=== PATIENT | male | born 1955 | race Two or more races ===

== ENCOUNTER 2020-08-05 11:04 | Inpatient (IN) | payer OTHER ==
[~2020-08-05] VITALS: Ht 167.6 cm; Wt 106.1 kg
[2020-08-05] MEDS ORDERED: ASPirin 81 mg TAB PO ONE (11:30)
[2020-08-05 12:12] LABS: Mean Corpuscular Hemoglobin 29.8 pg (28.0-32.0); Mean Corpuscular Hgb Conc. 34.4 g/dL (32.0-36.0); Nucleated Red Blood Cells % 0.2 %; White Blood Cell 3.7 10^3/uL (4.4-10.8)
[2020-08-05 12:14] LABS: Basophils # (auto) 0 10 ^3/uL (0-0.2); Basophils % (auto) 0.8 % (0.0-2.0); Eosinophils # (auto) 0.1 10 ^3/uL (0-0.8); Eosinophils % (auto) 2.7 % (0.0-7.0); Hematocrit 49.9 % (41.0-53.0); Hemoglobin 17.2 g/dL (13.5-17.5); Lymphocytes # (auto) 0.7 10 ^3/uL (0.4-5.4); Lymphocytes % (auto) 19.3 % (10.0-50.0); Mean Corpuscular Volume 86.4 fL (80.0-100.0); Monocytes # (auto) 0.2 10 ^3/uL (0-1.3); Monocytes % (auto) 5.5 % (0.0-12.0); Neutrophils # (auto) 2.7 10 ^3/uL (1.6-8.6); Neutrophils % (auto) 71.7 % (37.0-80.0); Red Blood Cells 5.78 10^6/uL (4.5-5.90); Red Cell Distribution Width 14.4 % (11.8-14.3)
[2020-08-05 12:23] LABS: Alanine Aminotransferase 32 U/L (16-61); Albumin 3.5 g/dL (3.4-5.0); Anion Gap 8 (5-15); Blood Urea Nitrogen 6 mg/dL (7-18); CRP High Sensitivity 0.04 mg/dL (< 0.3); Calcium 8.2 mg/dL (8.5-10.1); Carbon Dioxide 22 mmol/L (21-32); Chloride 108 mmol/L (98-107); Glucose 125 mg/dL (74-106); Magnesium 2.1 mg/dL (1.6-2.6); Potassium 3.9 mmol/L (3.5-5.1); Sodium 138 mmol/L (136-145)
[2020-08-05 12:29] LABS: Alkaline Phosphatase 155 U/L (45-117); Aspartate Aminotransferase 25 U/L (15-37); BUN/Creatinine Ratio 8.1; GFR African American 137 mL/min; GFR Non-African American 113 mL/min; Total Protein 7.8 g/dL (6.4-8.2)
[2020-08-05 12:43] LABS: Platelet Count (auto) 56 10^3/uL (140-450)
[2020-08-05] MEDS ORDERED: HYDROcodone-ACET 10/325MG TAB PO ONE (15:30)
[2020-08-05] MEDS ORDERED: MORPHINE SULF INJ 2 MG/ML SYRINGE 1ML IV PRN (15:30)
[2020-08-05] MEDS ORDERED: NITROGLYCERIN 0.4 MG SL TAB SL PRN (15:30)
[2020-08-05 18:21] VITALS: BP 139/81
[2020-08-05] MEDS: HYDROcodone-ACET 10/325MG TAB PO PRN (20:49)
[2020-08-05] MEDS: GABAPENTIN 300 MG CAP PO SCH (21:45)
[2020-08-05] MEDS: PROPRANOLOL HCL 20 MG TAB PO SCH (21:46)
[2020-08-05] MEDS: TAMSULOSIN HYDROCHLORIDE 0.4 MG CAP PO SCH (21:46)
[2020-08-05] MEDS: SPIRONOLACTONE 25 MG TAB PO SCH (21:47)
[2020-08-05] MEDS: AMITRIPTYLINE HCL 25 MG TAB PO SCH (21:48)
[2020-08-05] MEDS: BUMETANIDE 1 MG TAB PO SCH (21:48)
[2020-08-05] MEDS: OMEPRAZOLE 20MG/10ML ORAL SUSP PO SCH (21:56)
[2020-08-05 23:55] VITALS: BP 137/70
[2020-08-06] MEDS: HYDROcodone-ACET 10/325MG TAB PO PRN ×4 (02:41→22:17)
[2020-08-06 05:45] VITALS: BP 118/74
[2020-08-06] MEDS ORDERED: ADENOSINE 89 MG in GIVE UN-DILUTED 0 ML IV STA (08:16)
[2020-08-06 09:00] VITALS: BP 125/84
[2020-08-06] MEDS: OMEPRAZOLE 20MG/10ML ORAL SUSP PO SCH ×2 (10:00→22:00)
[2020-08-06 10:56] VITALS: BP 123/78
[2020-08-06] MEDS: PROPRANOLOL HCL 20 MG TAB PO SCH ×2 (12:06→22:15)
[2020-08-06] MEDS: TAMSULOSIN HYDROCHLORIDE 0.4 MG CAP PO SCH ×2 (12:07→22:14)
[2020-08-06] MEDS: ENOXAPARIN SOD 40 MG/0.4 ML SYRINGE SC SCH (12:07)
[2020-08-06] MEDS: BUMETANIDE 1 MG TAB PO SCH ×2 (12:07→22:13)
[2020-08-06] MEDS: GABAPENTIN 300 MG CAP PO SCH ×2 (12:07→22:16)
[2020-08-06] MEDS: ASPirin 81 mg TAB PO SCH (12:07)
[2020-08-06] MEDS: SPIRONOLACTONE 25 MG TAB PO SCH ×2 (12:08→22:12)
[2020-08-06] MEDS: LEVOTHYROXINE SODIUM 50 MCG TAB PO SCH (12:08)
[2020-08-06 17:00] VITALS: BP 120/71
[2020-08-06 18:00] VITALS: BP 134/75
[2020-08-06] MEDS ORDERED: AMITRIPTYLINE HCL 25 MG TAB ONE ×2 (22:36→22:37)
[2020-08-06] MEDS: AMITRIPTYLINE HCL 25 MG TAB PO SCH (22:40)
[2020-08-07 05:00] VITALS: BP 122/75
[2020-08-07 06:04] LABS: Basophils # (auto) 0 10 ^3/uL (0-0.2); Eosinophils # (auto) 0.1 10 ^3/uL (0-0.8); Hemoglobin 16.8 g/dL (13.5-17.5); White Blood Cell 3.3 10^3/uL (4.4-10.8)
[2020-08-07 06:07] LABS: Basophils % (auto) 0.9 % (0.0-2.0); Hematocrit 47.9 % (41.0-53.0); Lymphocytes # (auto) 1.1 10 ^3/uL (0.4-5.4); Lymphocytes % (auto) 32.3 % (10.0-50.0); Mean Corpuscular Hemoglobin 30.9 pg (28.0-32.0); Mean Corpuscular Volume 88.4 fL (80.0-100.0); Monocytes # (auto) 0.3 10 ^3/uL (0-1.3); Monocytes % (auto) 10.3 % (0.0-12.0); Neutrophils # (auto) 1.8 10 ^3/uL (1.6-8.6); Neutrophils % (auto) 53.5 % (37.0-80.0); Nucleated Red Blood Cells % 0.5 %; Red Blood Cells 5.42 10^6/uL (4.5-5.90); Red Cell Distribution Width 14.4 % (11.8-14.3)
[2020-08-07 06:15] LABS: Platelet Count (auto) 50 10^3/uL (140-450)
[2020-08-07 06:34] LABS: BUN/Creatinine Ratio 16.3; Bilirubin, Total 0.8 mg/dL (0.2-1.0); Calcium 7.9 mg/dL (8.5-10.1)
[2020-08-07 09:07] VITALS: BP 114/61
[2020-08-07] MEDS: ENOXAPARIN SOD 40 MG/0.4 ML SYRINGE SC SCH (09:32)
[2020-08-07] MEDS: SPIRONOLACTONE 25 MG TAB PO SCH (09:32)
[2020-08-07] MEDS: BUMETANIDE 1 MG TAB PO SCH (09:33)
[2020-08-07] MEDS: ASPirin 81 mg TAB PO SCH (09:33)
[2020-08-07] MEDS: GABAPENTIN 300 MG CAP PO SCH (09:33)
[2020-08-07] MEDS: TAMSULOSIN HYDROCHLORIDE 0.4 MG CAP PO SCH (09:33)
[2020-08-07] MEDS: PROPRANOLOL HCL 20 MG TAB PO SCH (09:33)
[2020-08-07] MEDS: LEVOTHYROXINE SODIUM 50 MCG TAB PO SCH (09:34)
[2020-08-07] MEDS: OMEPRAZOLE 20MG/10ML ORAL SUSP PO SCH (09:58)
[2020-08-07] MEDS: HYDROcodone-ACET 10/325MG TAB PO PRN ×2 (09:59→17:03)
[2020-08-07 12:45] VITALS: BP 111/53
[2020-08-07 15:43] VITALS: BP 114/61
[2020-08-07 16:46] VITALS: BP 113/71
== END 2020-08-07 17:45 | DRG 433 ==
LOC: ER 11:04 → EEVIPCON 11:04 → TELE 15:22 → WEST WING 18:15 → TELE-WESTW 22:36 → OBSVTOIN 08-06 09:00
PROVIDERS: ADMIT Internal Medicine; ATTEND Internal Medicine
DX: K74.60 Unspecified cirrhosis of liver (principal); R18.8 Other ascites; Z20.822 Contact with and (suspected) exposure to COVID-19; D69.6 Thrombocytopenia, unspecified; E66.01 Morbid (severe) obesity due to excess calories; E03.9 Hypothyroidism, unspecified; K72.10 Chronic hepatic failure without coma; I10 Essential (primary) hypertension; Z82.49 Family history of ischemic heart disease and other diseases of the circulatory system; Z87.891 Personal history of nicotine dependence; Z79.899 Other long term (current) drug therapy; Z68.37 Body mass index [BMI] 37.0-37.9, adult
CPT/HCPCS: 36415; 71045; 78452; 80053; 82728; 83735; 83880; 84443; 84484; 85025; 85379; 86141; 87081; 87426; 93005; 93017; 93306; G0378; J0153

== ENCOUNTER 2020-09-04 22:52 | Inpatient (IN) | payer OTHER ==
[~2020-09-04] VITALS: Ht 167.6 cm; Wt 98.5 kg
[2020-09-04 23:46] LABS: Basophils # (auto) 0 10 ^3/uL (0-0.2); Basophils % (auto) 0.7 % (0.0-2.0); Eosinophils # (auto) 0.1 10 ^3/uL (0-0.8); Eosinophils % (auto) 2.1 % (0.0-7.0); Hematocrit 44.2 % (41.0-53.0); Hemoglobin 15.7 g/dL (13.5-17.5); Lymphocytes # (auto) 0.8 10 ^3/uL (0.4-5.4); Lymphocytes % (auto) 22.3 % (10.0-50.0); Mean Corpuscular Hemoglobin 30.4 pg (28.0-32.0); Mean Corpuscular Hgb Conc. 35.6 g/dL (32.0-36.0); Mean Corpuscular Volume 85.4 fL (80.0-100.0); Monocytes # (auto) 0.3 10 ^3/uL (0-1.3); Monocytes % (auto) 8.2 % (0.0-12.0); Neutrophils # (auto) 2.5 10 ^3/uL (1.6-8.6); Neutrophils % (auto) 66.7 % (37.0-80.0); Nucleated Red Blood Cells % 0.4 %; Red Blood Cells 5.17 10^6/uL (4.5-5.90); White Blood Cell 3.7 10^3/uL (4.4-10.8)
[2020-09-04 23:47] LABS: Platelet Count (auto) 42 10^3/uL (140-450)
[2020-09-04 23:55] LABS: Albumin 2.9 g/dL (3.4-5.0); BUN/Creatinine Ratio 11.9; Calcium 7.4 mg/dL (8.5-10.1); Potassium 3.8 mmol/L (3.5-5.1)
[2020-09-04 23:58] LABS: Bilirubin, Total 0.6 mg/dL (0.2-1.0); Total Protein 6.8 g/dL (6.4-8.2)
[2020-09-05 00:01] LABS: Urine Bacteria FEW /hpf (None Seen); Urine Blood Negative /uL (Negative); Urine Specific Gravity 1.017 (1.001-1.035); Urine WBC <1 /hpf (0 - 3)
[2020-09-05] MEDS ORDERED: CEFTRIAXONE SODIUM 2 GM in D5W 5% 50 ML IV ONE (01:30)
[2020-09-05] MEDS ORDERED: cefTRIAXone 1GM/50ML D5W 50 ML IV ONE (01:52)
[2020-09-05] MEDS ORDERED: cefTRIAXone SOD 1,000 MG VL ONE (01:52)
[2020-09-05] MEDS ORDERED: fentaNYL CITRATE 100 MCG/2 ML VL IV ONE (02:30)
[2020-09-05] MEDS ORDERED: ONDANSETRON HCL 4 MG/2 ML VIAL IV ONE (02:30)
[2020-09-05] MEDS ORDERED: NITROGLYCERIN 0.4 MG SL TAB SL PRN (03:00)
[2020-09-05] MEDS ORDERED: MORPHINE SULF INJ 2 MG/ML SYRINGE 1ML IV PRN (03:00)
[2020-09-05] MEDS ORDERED: LACTULOSE 20Gm/30ML SOLN PO PRN (03:15)
[2020-09-05] MEDS: LEVOTHYROXINE SODIUM 50 MCG TAB PO SCH (05:49)
[2020-09-05 08:07] LABS: Basophils # (auto) 0 10 ^3/uL (0-0.2); Eosinophils # (auto) 0.1 10 ^3/uL (0-0.8); Eosinophils % (auto) 2.2 % (0.0-7.0); Hemoglobin 15.8 g/dL (13.5-17.5); Lymphocytes # (auto) 0.6 10 ^3/uL (0.4-5.4); Red Cell Distribution Width 14.5 % (11.8-14.3); White Blood Cell 2.7 10^3/uL (4.4-10.8)
[2020-09-05 08:09] LABS: Basophils % (auto) 0.5 % (0.0-2.0); Hematocrit 45.1 % (41.0-53.0); Lymphocytes % (auto) 23.3 % (10.0-50.0); Mean Corpuscular Hemoglobin 30.1 pg (28.0-32.0); Mean Corpuscular Hgb Conc. 35.1 g/dL (32.0-36.0); Mean Corpuscular Volume 85.6 fL (80.0-100.0); Monocytes # (auto) 0.2 10 ^3/uL (0-1.3); Monocytes % (auto) 8.7 % (0.0-12.0); Neutrophils # (auto) 1.8 10 ^3/uL (1.6-8.6); Neutrophils % (auto) 65.3 % (37.0-80.0); Nucleated Red Blood Cells % 0.5 %; Platelet Count (auto) 44 10^3/uL (140-450); Red Blood Cells 5.27 10^6/uL (4.5-5.90)
[2020-09-05 08:22] LABS: Calcium 7.6 mg/dL (8.5-10.1); Potassium 3.9 mmol/L (3.5-5.1)
[2020-09-05 08:25] LABS: BUN/Creatinine Ratio 12.5; Bilirubin, Total 0.7 mg/dL (0.2-1.0)
[2020-09-05] MEDS: TAMSULOSIN HYDROCHLORIDE 0.4 MG CAP PO SCH ×2 (09:20→22:00)
[2020-09-05] MEDS: PROPRANOLOL HCL 20 MG TAB PO SCH ×2 (09:20→22:01)
[2020-09-05] MEDS: SPIRONOLACTONE 25 MG TAB PO SCH ×2 (09:20→22:00)
[2020-09-05] MEDS: GABAPENTIN 300 MG CAP PO SCH ×2 (09:21→21:59)
[2020-09-05] MEDS: POTASSIUM CHL 10 Meq TABLET PO SCH ×2 (09:21→21:58)
[2020-09-05] MEDS: FUROSEMIDE 20 MG/2 ML VIAL IV SCH ×2 (10:00→22:02)
[2020-09-05 13:09] VITALS: BP 146/79
[2020-09-05] MEDS ORDERED: AMIT10TA6 PO (13:09)
[2020-09-05] MEDS ORDERED: SPIR25TA8 PO (13:09)
[2020-09-05] MEDS ORDERED: ASCO500C49 PO (13:09)
[2020-09-05] MEDS ORDERED: GABA100C9 PO (13:09)
[2020-09-05] MEDS ORDERED: OXCA600T3 PO (13:09)
[2020-09-05 14:42] VITALS: BP 114/77
[2020-09-05 17:00] VITALS: BP 123/81
[2020-09-05] MEDS: AMITRIPTYLINE HCL 25 MG TAB PO SCH (21:59)
[2020-09-05 22:00] VITALS: BP 131/69
[2020-09-05] MEDS: HYDROcodone-ACET 10/325MG TAB PO PRN (22:00)
[2020-09-05] MEDS: LACTULOSE 20Gm/30ML SOLN PO SCH (22:02)
[2020-09-06 04:47] VITALS: BP 138/68
[2020-09-06] MEDS: LEVOTHYROXINE SODIUM 50 MCG TAB PO SCH (06:08)
[2020-09-06 06:13] LABS: Basophils # (auto) 0 10 ^3/uL (0-0.2); Basophils % (auto) 0.5 % (0.0-2.0); Eosinophils # (auto) 0.2 10 ^3/uL (0-0.8); Hematocrit 44.8 % (41.0-53.0); Lymphocytes # (auto) 0.9 10 ^3/uL (0.4-5.4); Lymphocytes % (auto) 24.3 % (10.0-50.0); Mean Corpuscular Hemoglobin 30.6 pg (28.0-32.0); Mean Corpuscular Hgb Conc. 35.7 g/dL (32.0-36.0); Mean Corpuscular Volume 85.8 fL (80.0-100.0); Monocytes # (auto) 0.4 10 ^3/uL (0-1.3); Neutrophils # (auto) 2.3 10 ^3/uL (1.6-8.6); Neutrophils % (auto) 60.2 % (37.0-80.0); Nucleated Red Blood Cells % 0.5 %; Platelet Count (auto) 52 10^3/uL (140-450); Red Blood Cells 5.22 10^6/uL (4.5-5.90); White Blood Cell 3.8 10^3/uL (4.4-10.8)
[2020-09-06 06:35] LABS: Potassium 4.1 mmol/L (3.5-5.1)
[2020-09-06 06:39] LABS: Albumin 2.8 g/dL (3.4-5.0); BUN/Creatinine Ratio 15.9; Calcium 7.9 mg/dL (8.5-10.1)
[2020-09-06] MEDS: HYDROcodone-ACET 10/325MG TAB PO PRN ×3 (06:45→22:44)
[2020-09-06 06:53] LABS: Bilirubin, Total 0.5 mg/dL (0.2-1.0); Total Protein 6.8 g/dL (6.4-8.2)
[2020-09-06 09:00] VITALS: BP 115/75
[2020-09-06] MEDS: FUROSEMIDE 20 MG/2 ML VIAL IV SCH ×2 (10:02→22:00)
[2020-09-06] MEDS: TAMSULOSIN HYDROCHLORIDE 0.4 MG CAP PO SCH ×2 (10:02→22:01)
[2020-09-06] MEDS: PROPRANOLOL HCL 20 MG TAB PO SCH ×2 (10:02→22:02)
[2020-09-06] MEDS: LACTULOSE 20Gm/30ML SOLN PO SCH ×3 (10:02→22:01)
[2020-09-06] MEDS: POTASSIUM CHL 10 Meq TABLET PO SCH ×2 (10:03→22:02)
[2020-09-06] MEDS: GABAPENTIN 300 MG CAP PO SCH ×2 (10:03→22:02)
[2020-09-06] MEDS: SPIRONOLACTONE 25 MG TAB PO SCH ×2 (10:03→22:01)
[2020-09-06 12:30] VITALS: BP 123/76
[2020-09-06 16:52] VITALS: BP 122/73
[2020-09-06 22:00] VITALS: BP 116/61
[2020-09-06] MEDS: AMITRIPTYLINE HCL 25 MG TAB PO SCH (22:01)
[2020-09-06] MEDS: CIPROFLOXACIN HCL 500 MG TAB PO SCH (22:01)
[2020-09-07 05:00] VITALS: BP 100/47
[2020-09-07] MEDS: LEVOTHYROXINE SODIUM 50 MCG TAB PO SCH (05:05)
[2020-09-07] MEDS: HYDROcodone-ACET 10/325MG TAB PO PRN ×2 (05:06→11:10)
[2020-09-07 06:57] LABS: Basophils # (auto) 0 10 ^3/uL (0-0.2); Eosinophils # (auto) 0.2 10 ^3/uL (0-0.8); Hemoglobin 16.4 g/dL (13.5-17.5); Nucleated Red Blood Cells % 0.2 %; Platelet Count (auto) 63 10^3/uL (140-450); Red Cell Distribution Width 14.7 % (11.8-14.3); White Blood Cell 4.3 10^3/uL (4.4-10.8)
[2020-09-07 06:59] LABS: Basophils % (auto) 1.1 % (0.0-2.0); Eosinophils % (auto) 3.8 % (0.0-7.0); Hematocrit 45.7 % (41.0-53.0); Lymphocytes % (auto) 22.7 % (10.0-50.0); Mean Corpuscular Hemoglobin 30.4 pg (28.0-32.0); Mean Corpuscular Hgb Conc. 35.9 g/dL (32.0-36.0); Mean Corpuscular Volume 84.9 fL (80.0-100.0); Monocytes # (auto) 0.3 10 ^3/uL (0-1.3); Monocytes % (auto) 7.4 % (0.0-12.0); Neutrophils # (auto) 2.8 10 ^3/uL (1.6-8.6); Red Blood Cells 5.38 10^6/uL (4.5-5.90)
[2020-09-07 07:10] LABS: Potassium 4.6 mmol/L (3.5-5.1)
[2020-09-07 07:21] LABS: Albumin 3.1 g/dL (3.4-5.0); BUN/Creatinine Ratio 20.7; Total Protein 7.4 g/dL (6.4-8.2)
[2020-09-07 09:00] VITALS: BP 137/75
[2020-09-07] MEDS: FUROSEMIDE 20 MG/2 ML VIAL IV SCH (09:36)
[2020-09-07] MEDS: PROPRANOLOL HCL 20 MG TAB PO SCH ×2 (09:37→21:15)
[2020-09-07] MEDS: SPIRONOLACTONE 25 MG TAB PO SCH ×2 (09:37→21:15)
[2020-09-07] MEDS: CIPROFLOXACIN HCL 500 MG TAB PO SCH ×2 (09:37→21:11)
[2020-09-07] MEDS: TAMSULOSIN HYDROCHLORIDE 0.4 MG CAP PO SCH ×2 (09:37→21:11)
[2020-09-07] MEDS: LACTULOSE 20Gm/30ML SOLN PO SCH ×2 (09:37→21:12)
[2020-09-07] MEDS: POTASSIUM CHL 10 Meq TABLET PO SCH ×2 (09:37→21:12)
[2020-09-07] MEDS: GABAPENTIN 300 MG CAP PO SCH ×2 (09:38→21:11)
[2020-09-07 13:00] VITALS: BP 156/91
[2020-09-07] MEDS ORDERED: HYDROcodone-ACET 10/325MG TAB PO PRN (13:30)
[2020-09-07 17:00] VITALS: BP 136/88
[2020-09-07] MEDS: FUROSEMIDE 40 MG/4 ML VIAL IV SCH (18:12)
[2020-09-07] MEDS: AMITRIPTYLINE HCL 25 MG TAB PO SCH (21:12)
[2020-09-07 23:49] VITALS: BP 127/79
[2020-09-08] MEDS: HYDROcodone-ACET 10/325MG TAB PO PRN ×2 (01:48→09:30)
[2020-09-08 05:11] VITALS: BP 127/76
[2020-09-08 06:15] LABS: BUN/Creatinine Ratio 19.6; Calcium 7.9 mg/dL (8.5-10.1)
[2020-09-08] MEDS: LEVOTHYROXINE SODIUM 50 MCG TAB PO SCH (06:25)
[2020-09-08] MEDS: FUROSEMIDE 40 MG/4 ML VIAL IV SCH ×2 (06:25→18:00)
[2020-09-08 08:59] VITALS: BP 128/72
[2020-09-08] MEDS: GABAPENTIN 300 MG CAP PO SCH (10:16)
[2020-09-08] MEDS: LACTULOSE 20Gm/30ML SOLN PO SCH (10:16)
[2020-09-08] MEDS: POTASSIUM CHL 10 Meq TABLET PO SCH (10:17)
[2020-09-08] MEDS: TAMSULOSIN HYDROCHLORIDE 0.4 MG CAP PO SCH (10:17)
[2020-09-08] MEDS: CIPROFLOXACIN HCL 500 MG TAB PO SCH (10:17)
[2020-09-08] MEDS: SPIRONOLACTONE 25 MG TAB PO SCH (10:18)
[2020-09-08] MEDS: PROPRANOLOL HCL 20 MG TAB PO SCH (10:18)
[2020-09-08 13:00] VITALS: BP 130/74
[2020-09-08 17:00] VITALS: BP 111/50
[2020-09-08] MEDS ORDERED: PROP20TA73 PO (17:04)
[2020-09-08] MEDS ORDERED: FURO20TA3 PO (17:04)
[2020-09-08] MEDS ORDERED: LACT10SO3 PO (17:04)
[2020-09-08] MEDS ORDERED: CIP500T PO (17:04)
[2020-09-08] MEDS ORDERED: TAM04C PO (17:04)
[2020-09-08] MEDS ORDERED: LEV50T PO (17:04)
== END 2020-09-08 20:50 | DRG 433 ==
LOC: EDBD 22:52 → EEVIPCON 22:57 → ER 22:57 → OVERFLOW 09-05 03:00 → CENTRAL 09-05 08:20
PROVIDERS: ADMIT Internal Medicine; ATTEND Internal Medicine
DX: K74.60 Unspecified cirrhosis of liver (principal); R18.8 Other ascites; E46 Unspecified protein-calorie malnutrition; J98.11 Atelectasis; K76.6 Portal hypertension; I85.10 Secondary esophageal varices without bleeding; L03.211 Cellulitis of face; Z20.822 Contact with and (suspected) exposure to COVID-19; D69.6 Thrombocytopenia, unspecified; E03.9 Hypothyroidism, unspecified; I50.9 Heart failure, unspecified; E88.09 Other disorders of plasma-protein metabolism, not elsewhere classified; I70.8 Atherosclerosis of other arteries; Z90.49 Acquired absence of other specified parts of digestive tract; Z79.899 Other long term (current) drug therapy; Z68.38 Body mass index [BMI] 38.0-38.9, adult
CPT/HCPCS: 36415; 71045; 74176; 80048; 80053; 81001; 82140; 83880; 85025; 85049; 87081; 87426; 93005; 96365; 96375; G0378; J0696; J2405; J7060